=== PATIENT | male | born 1945 | race Caucasian/White ===

== ENCOUNTER 2021-04-21 16:45 | Inpatient (IN) ==
[2021-04-21] MEDS ORDERED: diphenhydrAMINE CAP 25 MG CAPSULE PO PRN (20:21)
[2021-04-21] MEDS ORDERED: GLUCAGON 1 MG VIAL IM PRN (20:21)
[2021-04-21] MEDS ORDERED: NICOTINE 21 MG/24 HR PATCH TRANSDERM PRN (20:21)
[2021-04-21] MEDS ORDERED: MORPHINE 4 MG/1 ML VIAL IV PRN (20:21)
[2021-04-21] MEDS ORDERED: DEXTROSE 50% 25 GM/50 ML VIAL IV PRN (20:21)
[2021-04-21] MEDS ORDERED: hydrALAZINE 20 MG/1 ML VIAL IV PRN (20:21)
[2021-04-21] MEDS ORDERED: ONDANSETRON 4 MG/2 ML VIAL IV PRN (20:21)
[2021-04-21] MEDS ORDERED: SODIUM CHLORIDE 0.9% 1,000 ML IV SCH ×2 (20:30→22:00)
[2021-04-21 21:23] LABS: Basophils % 0.2 % (0.0-0.8); Eosinophils % 0.1 % (0.00-10.9); Hematocrit 47.7 VOL% (42.0-52.0); Hemoglobin 15.6 GM/DL (14.0-18.0); Immature Granulocytes % 0.6 %; Lymphocytes # 1.2 10*3/uL (1.4-4.0); Lymphocytes % 7.5 % (21.2-54.2); Mean Corpuscular HGB Conc 32.7 GM/DL (32-36); Mean Corpuscular Volume 96.2 FL (87-102); Mean Platelet Volume 9.7 FL (9.6-12.0); NRBC # 0.02 10*3/uL; Neutrophils % 87.6 % (38.7-73.9); Platelet Count 136 T/CUMM (130-400); Red Blood Count 4.96 MC/CUMM (3.8-5.5); Red Cell Distribution Width 13.3 % (9.3-17.3); White Blood Count 15.5 T/CUMM (4-12)
[2021-04-21 21:41] LABS: Albumin 2.9 G/DL (3.4-5.0); Bilirubin,Total 0.8 MG/DL (0.2-1.0); Calcium 8.8 MG/DL (8.5-10.1); Potassium 4.6 MMOL/L (3.5-5.1); Total Protein 7.2 G/DL (6.4-8.2)
[2021-04-21 21:45] LABS: Band Neutrophils 19 % (0-10); Lymphocytes 8 % (20-55); Metamyelocytes 2 %; Segmented Neutrophils 69 % (50-85); Total Cells Counted 100
[2021-04-21 21:46] LABS: Platelet Estimate Adequate
[2021-04-21 21:50] LABS: Dohle Bodies Few; Toxic Granulation 1+
[2021-04-22] MEDS ORDERED: cefTRIAXone 1,000 MG in SODIUM CHLORIDE 0.9% 100 ML IV SCH (01:00)
[2021-04-22 02:14] LABS: RBC,Urine 46598 /HPF (0-4)
[2021-04-22 02:22] LABS: Urine Appearance Turbid (Clear); Urine Color Dark Red (Yellow)
[2021-04-22 02:23] LABS: Bilirubin,Urine Negative (Negative); Glucose,Urine (UA) Negative (Negative); Ketones,Urine Negative (Negative); Nitrite,Urine Negative (Negative); Protein,Urine >=500 MG/DL
[2021-04-22 02:24] LABS: Blood, Urine 1+ mg/dL (Negative); Urine Urobilinogen < 2.0 EU/DL (0.2-1.0)
[2021-04-22] MEDS: METOPROLOL TARTRATE 25 MG TABLET PO SCH ×2 (09:38→21:59)
[2021-04-22] MEDS: DUTASTERIDE 0.5 MG CAPSULE PO SCH (21:58)
[2021-04-22] MEDS: MEROPENEM 500 MG in SODIUM CHLORIDE 0.9% 100 ML IV SCH (21:59)
[2021-04-22] MEDS: SIMVASTATIN 10 MG TABLET PO SCH (21:59)
[2021-04-22] MEDS: CHOLESTYRAMINE 4 GM PACK PO SCH (21:59)
[2021-04-23 07:17] LABS: Basophils % 0.3 % (0.0-0.8); Eosinophils # 0.1 10*3/uL (0.0-0.87); Eosinophils % 0.7 % (0.00-10.9); Hematocrit 39.9 VOL% (42.0-52.0); Hemoglobin 13.8 GM/DL (14.0-18.0); Immature Granulocytes % 0.5 %; Immature Granulocytes Absolute 0.06 #; Lymphocytes # 1.2 10*3/uL (1.4-4.0); Lymphocytes % 10.1 % (21.2-54.2); Mean Corpuscular HGB Conc 34.6 GM/DL (32-36); Mean Corpuscular Volume 92.6 FL (87-102); Mean Platelet Volume 10.2 FL (9.6-12.0); Neutrophils % 83.4 % (38.7-73.9); Platelet Count 161 T/CUMM (130-400); Red Blood Count 4.31 MC/CUMM (3.8-5.5); Red Cell Distribution Width 13.1 % (9.3-17.3); White Blood Count 12.3 T/CUMM (4-12)
[2021-04-23 07:33] LABS: Calcium 8.7 MG/DL (8.5-10.1); Osmolality,Calculated 285.8 MOS/KG (273-304)
[2021-04-23] MEDS: MEROPENEM 500 MG in SODIUM CHLORIDE 0.9% 100 ML IV SCH ×2 (08:28→20:23)
[2021-04-23] MEDS: METOPROLOL TARTRATE 25 MG TABLET PO SCH ×2 (08:28→20:23)
[2021-04-23] MEDS: CHOLESTYRAMINE 4 GM PACK PO SCH (09:18)
[2021-04-23] MEDS ORDERED: ZIPRASIDONE 20 MG/1 ML VIAL IM ONE (17:41)
[2021-04-23] MEDS: SIMVASTATIN 10 MG TABLET PO SCH (20:22)
[2021-04-23] MEDS: DUTASTERIDE 0.5 MG CAPSULE PO SCH (20:22)
[2021-04-23] MEDS ORDERED: QUEtiapine 25 MG TABLET PO SCH (21:00)
[2021-04-23] MEDS: HALOPERIDOL 5 MG/ML AMP IM PRN (22:57)
[2021-04-24 05:37] LABS: Basophils % 0.2 % (0.0-0.8); Eosinophils # 0.1 10*3/uL (0.0-0.87); Hematocrit 41.5 VOL% (42.0-52.0); Hemoglobin 13.9 GM/DL (14.0-18.0); Immature Granulocytes % 0.6 %; Immature Granulocytes Absolute 0.07 #; Lymphocytes # 1.3 10*3/uL (1.4-4.0); Lymphocytes % 11.5 % (21.2-54.2); Mean Corpuscular HGB Conc 33.5 GM/DL (32-36); Mean Corpuscular Volume 92.6 FL (87-102); Mean Platelet Volume 9.6 FL (9.6-12.0); Neutrophils % 77.7 % (38.7-73.9); Platelet Count 181 T/CUMM (130-400); Red Blood Count 4.48 MC/CUMM (3.8-5.5); Red Cell Distribution Width 12.8 % (9.3-17.3); White Blood Count 11.1 T/CUMM (4-12)
[2021-04-24 05:57] LABS: Eosinophils 2 % (0-10); Lymphocytes 6 % (20-55); Platelet Estimate Adequate; Segmented Neutrophils 81 % (50-85); Total Cells Counted 100
[2021-04-24 05:58] LABS: Calcium 8.8 MG/DL (8.5-10.1); Osmolality,Calculated 286.4 MOS/KG (273-304)
[2021-04-24 06:03] LABS: Folate 15.84 NG/ML (5.38-24.0)
[2021-04-24] MEDS: MEROPENEM 500 MG in SODIUM CHLORIDE 0.9% 100 ML IV SCH ×2 (08:35→21:13)
[2021-04-24] MEDS: METOPROLOL TARTRATE 25 MG TABLET PO SCH ×2 (08:35→21:13)
[2021-04-24] MEDS: DIGOXIN 0.25 MG TABLET PO SCH (08:35)
[2021-04-24 08:43] LABS: Bilirubin,Urine Negative (Negative); Blood, Urine Large mg/dL (Negative); Glucose,Urine (UA) Negative (Negative); Ketones,Urine Negative (Negative); Nitrite,Urine Negative (Negative); Protein,Urine 30 MG/DL; RBC,Urine 9 /HPF (0-4); Urine Appearance Slightly Hazy (Clear); Urine Color Yellow (Yellow); Urine Specific Gravity 1.008 (1.001-1.035); Urine Urobilinogen < 2.0 EU/DL (0.2-1.0)
[2021-04-24] MEDS: HALOPERIDOL 5 MG/ML AMP IM PRN (10:04)
[2021-04-24] MEDS ORDERED: HALOPERIDOL 5 MG/ML AMP IM ONE (14:07)
[2021-04-24] MEDS ORDERED: cefTRIAXone 1,000 MG in SODIUM CHLORIDE 0.9% 100 ML IV SCH (16:30)
[2021-04-24] MEDS: SIMVASTATIN 10 MG TABLET PO SCH (21:13)
[2021-04-24] MEDS: DUTASTERIDE 0.5 MG CAPSULE PO SCH (21:13)
[2021-04-24] MEDS: QUEtiapine 25 MG TABLET PO SCH (21:13)
[2021-04-25] MEDS: MEROPENEM 500 MG in SODIUM CHLORIDE 0.9% 100 ML IV SCH ×4 (03:01→20:43)
[2021-04-25 05:34] LABS: Basophils % 0.4 % (0.0-0.8); Eosinophils # 0.3 10*3/uL (0.0-0.87); Eosinophils % 3.2 % (0.00-10.9); Hemoglobin 13.9 GM/DL (14.0-18.0); Immature Granulocytes % 0.7 %; Immature Granulocytes Absolute 0.06 #; Lymphocytes # 1.4 10*3/uL (1.4-4.0); Lymphocytes % 16.8 % (21.2-54.2); Mean Corpuscular HGB Conc 34.8 GM/DL (32-36); Mean Corpuscular Volume 90.9 FL (87-102); Mean Platelet Volume 9.6 FL (9.6-12.0); Monocytes % 12.6 % (1.7-12.7); Neutrophils % 66.3 % (38.7-73.9); Platelet Count 185 T/CUMM (130-400); Red Cell Distribution Width 12.9 % (9.3-17.3); White Blood Count 8.4 T/CUMM (4-12)
[2021-04-25 06:01] LABS: Calcium 8.3 MG/DL (8.5-10.1); Osmolality,Calculated 284.3 MOS/KG (273-304); Potassium 3.7 MMOL/L (3.5-5.1)
[2021-04-25] MEDS ORDERED: cefTRIAXone 1,000 MG in SODIUM CHLORIDE 0.9% 100 ML IV ONE (07:48)
[2021-04-25] MEDS: DIGOXIN 0.25 MG TABLET PO SCH (10:07)
[2021-04-25] MEDS: METOPROLOL TARTRATE 25 MG TABLET PO SCH (10:07)
[2021-04-25] MEDS: QUEtiapine 25 MG TABLET PO SCH (20:42)
[2021-04-25] MEDS: METOPROLOL TARTRATE 50 MG TABLET PO SCH (20:43)
[2021-04-25] MEDS: DUTASTERIDE 0.5 MG CAPSULE PO SCH (20:43)
[2021-04-25] MEDS: SIMVASTATIN 10 MG TABLET PO SCH (20:43)
[2021-04-26] MEDS: MEROPENEM 500 MG in SODIUM CHLORIDE 0.9% 100 ML IV SCH ×4 (03:16→20:23)
[2021-04-26 04:22] LABS: Basophils % 0.3 % (0.0-0.8); Eosinophils # 0.3 10*3/uL (0.0-0.87); Eosinophils % 2.6 % (0.00-10.9); Hemoglobin 14.7 GM/DL (14.0-18.0); Immature Granulocytes % 0.8 %; Immature Granulocytes Absolute 0.08 #; Lymphocytes # 1.6 10*3/uL (1.4-4.0); Lymphocytes % 16.5 % (21.2-54.2); Mean Corpuscular HGB Conc 34.2 GM/DL (32-36); Mean Corpuscular Volume 92.1 FL (87-102); Mean Platelet Volume 9.7 FL (9.6-12.0); Monocytes % 13.9 % (1.7-12.7); Neutrophils % 65.9 % (38.7-73.9); Platelet Count 210 T/CUMM (130-400); Red Blood Count 4.67 MC/CUMM (3.8-5.5); Red Cell Distribution Width 12.6 % (9.3-17.3); White Blood Count 9.6 T/CUMM (4-12)
[2021-04-26 04:29] LABS: Calcium 8.6 MG/DL (8.5-10.1); Osmolality,Calculated 279.5 MOS/KG (273-304); Potassium 4.2 MMOL/L (3.5-5.1)
[2021-04-26] MEDS: METOPROLOL TARTRATE 50 MG TABLET PO SCH ×2 (10:01→20:22)
[2021-04-26] MEDS: DIGOXIN 0.25 MG TABLET PO SCH (10:02)
[2021-04-26] MEDS: QUEtiapine 100 MG TABLET PO SCH (20:22)
[2021-04-26] MEDS: SIMVASTATIN 10 MG TABLET PO SCH (20:22)
[2021-04-26] MEDS: DUTASTERIDE 0.5 MG CAPSULE PO SCH (20:22)
[2021-04-26] MEDS: HALOPERIDOL 5 MG/ML AMP IM PRN ×2 (20:23)
[2021-04-27] MEDS: MEROPENEM 500 MG in SODIUM CHLORIDE 0.9% 100 ML IV SCH ×4 (04:35→20:11)
[2021-04-27 05:14] LABS: Basophils % 0.5 % (0.0-0.8); Eosinophils # 0.2 10*3/uL (0.0-0.87); Eosinophils % 2.7 % (0.00-10.9); Hematocrit 46.7 VOL% (42.0-52.0); Hemoglobin 15.4 GM/DL (14.0-18.0); Immature Granulocytes % 0.9 %; Immature Granulocytes Absolute 0.08 #; Lymphocytes # 1.9 10*3/uL (1.4-4.0); Lymphocytes % 22.2 % (21.2-54.2); Mean Corpuscular Volume 94.9 FL (87-102); Mean Platelet Volume 9.6 FL (9.6-12.0); Neutrophils % 60.7 % (38.7-73.9); Platelet Count 213 T/CUMM (130-400); Red Blood Count 4.92 MC/CUMM (3.8-5.5); Red Cell Distribution Width 12.4 % (9.3-17.3); White Blood Count 8.5 T/CUMM (4-12)
[2021-04-27] MEDS ORDERED: cefTRIAXone 1,000 MG in SODIUM CHLORIDE 0.9% 100 ML IV ONE (06:00)
[2021-04-27 06:08] LABS: Calcium 8.5 MG/DL (8.5-10.1); Osmolality,Calculated 269.1 MOS/KG (273-304); Potassium 5.2 MMOL/L (3.5-5.1)
[2021-04-27 06:34] LABS: Platelet Estimate Normal
[2021-04-27] MEDS ORDERED: SODIUM POLYSTYRENE SULFATE 15 GM/60 ML BOTTLE PO STA (07:03)
[2021-04-27] MEDS: DIGOXIN 0.25 MG TABLET PO SCH (09:01)
[2021-04-27] MEDS: METOPROLOL TARTRATE 50 MG TABLET PO SCH ×2 (09:01→20:11)
[2021-04-27] MEDS ORDERED: fentaNYL 100 MCG/2 ML VIAL ONE (09:19)
[2021-04-27] MEDS ORDERED: SODIUM CHLORIDE 0.9% 100 ML IV ONE ×2 (09:57→10:31)
[2021-04-27] MEDS ORDERED: PHENYLEPHRINE 10 MG/1 ML VIAL IV ONE (09:57)
[2021-04-27] MEDS ORDERED: LACTATED RINGERS 1,000 ML IV SCH (10:00)
[2021-04-27] MEDS ORDERED: propofoL 200 MG/20 ML VIAL IV ONE (10:31)
[2021-04-27] MEDS ORDERED: ETOMIDATE 40 MG/20 ML VIAL IV ONE (10:31)
[2021-04-27] MEDS ORDERED: AMIODARONE 150 MG/3 ML VIAL ONE (10:32)
[2021-04-27] MEDS: QUEtiapine 100 MG TABLET PO SCH (20:10)
[2021-04-27] MEDS: SIMVASTATIN 10 MG TABLET PO SCH (20:11)
[2021-04-27] MEDS: ASCORBIC ACID 500 MG TABLET PO SCH (20:11)
[2021-04-27] MEDS: DUTASTERIDE 0.5 MG CAPSULE PO SCH (20:11)
[2021-04-28] MEDS: MEROPENEM 500 MG in SODIUM CHLORIDE 0.9% 100 ML IV SCH ×4 (03:10→20:39)
[2021-04-28 06:16] LABS: Basophils # 0.1 10*3/uL (0.0-0.2); Basophils % 0.6 % (0.0-0.8); Eosinophils # 0.3 10*3/uL (0.0-0.87); Eosinophils % 3.1 % (0.00-10.9); Hematocrit 42.5 VOL% (42.0-52.0); Hemoglobin 14.3 GM/DL (14.0-18.0); Immature Granulocytes % 0.9 %; Immature Granulocytes Absolute 0.07 #; Lymphocytes # 1.8 10*3/uL (1.4-4.0); Lymphocytes % 22.5 % (21.2-54.2); Mean Corpuscular HGB Conc 33.6 GM/DL (32-36); Mean Corpuscular Volume 92.8 FL (87-102); Mean Platelet Volume 9.8 FL (9.6-12.0); Monocytes % 10.6 % (1.7-12.7); Neutrophils % 62.3 % (38.7-73.9); Platelet Count 212 T/CUMM (130-400); Red Blood Count 4.58 MC/CUMM (3.8-5.5); Red Cell Distribution Width 12.4 % (9.3-17.3); White Blood Count 8.1 T/CUMM (4-12)
[2021-04-28 06:31] LABS: Calcium 8.1 MG/DL (8.5-10.1); Osmolality,Calculated 276.5 MOS/KG (273-304); Potassium 3.5 MMOL/L (3.5-5.1)
[2021-04-28] MEDS: DIGOXIN 0.25 MG TABLET PO SCH (09:00)
[2021-04-28] MEDS: ASPIRIN EC 81 MG TABLET PO SCH (09:00)
[2021-04-28] MEDS: ASCORBIC ACID 500 MG TABLET PO SCH ×2 (09:01→20:39)
[2021-04-28] MEDS: METOPROLOL TARTRATE 50 MG TABLET PO SCH ×2 (09:01→20:39)
[2021-04-28] MEDS: DILTIAZEM 30 MG TABLET PO SCH ×3 (10:24→22:59)
[2021-04-28] MEDS: ALBUTEROL/IPRATROPIUM 3 ML NEB RESP TX SCH (20:14)
[2021-04-28] MEDS: DUTASTERIDE 0.5 MG CAPSULE PO SCH (20:39)
[2021-04-28] MEDS: SIMVASTATIN 10 MG TABLET PO SCH (20:39)
[2021-04-28] MEDS ORDERED: QUEtiapine 25 MG TABLET PO SCH (21:00)
[2021-04-29] MEDS ORDERED: DILTIAZEM 50 MG/10 ML VIAL IV ONE (00:15)
[2021-04-29] MEDS: ALBUTEROL/IPRATROPIUM 3 ML NEB RESP TX SCH ×4 (00:58→18:57)
[2021-04-29] MEDS: MEROPENEM 500 MG in SODIUM CHLORIDE 0.9% 100 ML IV SCH ×4 (03:19→20:25)
[2021-04-29] MEDS: DILTIAZEM 30 MG TABLET PO SCH (04:51)
[2021-04-29] MEDS: ASCORBIC ACID 500 MG TABLET PO SCH ×2 (09:00→21:58)
[2021-04-29] MEDS: ASPIRIN EC 81 MG TABLET PO SCH (09:00)
[2021-04-29] MEDS: DIGOXIN 0.25 MG TABLET PO SCH (09:00)
[2021-04-29] MEDS: METOPROLOL TARTRATE 50 MG TABLET PO SCH ×2 (09:00→21:58)
[2021-04-29] MEDS: DILTIAZEM INJ 100 MG in SODIUM CHLORIDE 0.9% 100 ML IV SCH (10:30)
[2021-04-29] MEDS ORDERED: SODIUM CHLORIDE 0.9% 1,000 ML IV ONE (10:59)
[2021-04-29] MEDS ORDERED: POTASSIUM CHLORIDE RIDER 20 MEQ/100 ML PREMIX IV PRN (11:05)
[2021-04-29] MEDS ORDERED: MAGNESIUM SULF RIDER 2 GM/50 ML PREMIX IV PRN (11:06)
[2021-04-29] MEDS: POTASSIUM CHLORIDE RIDER 10 MEQ/100 ML PREMIX IV PRN ×3 (11:41→16:39)
[2021-04-29] MEDS: SODIUM CHLORIDE 0.9% 1,000 ML IV SCH (13:21)
[2021-04-29] MEDS: PANTOPRAZOLE 40 MG TABLET PO SCH (15:16)
[2021-04-29] MEDS: DUTASTERIDE 0.5 MG CAPSULE PO SCH (21:57)
[2021-04-29] MEDS: SIMVASTATIN 10 MG TABLET PO SCH (21:58)
[2021-04-29] MEDS: QUEtiapine 25 MG TABLET PO SCH (21:58)
[2021-04-30] MEDS: ALBUTEROL/IPRATROPIUM 3 ML NEB RESP TX SCH ×4 (00:07→19:44)
[2021-04-30] MEDS: MEROPENEM 500 MG in SODIUM CHLORIDE 0.9% 100 ML IV SCH ×4 (02:08→20:50)
[2021-04-30] MEDS: SODIUM CHLORIDE 0.9% 1,000 ML IV SCH ×3 (02:09→20:50)
[2021-04-30] MEDS: DILTIAZEM INJ 100 MG in SODIUM CHLORIDE 0.9% 100 ML IV SCH ×2 (05:08→15:31)
[2021-04-30] MEDS: DIGOXIN 0.25 MG TABLET PO SCH (10:26)
[2021-04-30] MEDS: ASPIRIN EC 81 MG TABLET PO SCH (10:27)
[2021-04-30] MEDS: ASCORBIC ACID 500 MG TABLET PO SCH ×2 (10:27→20:48)
[2021-04-30] MEDS: METOPROLOL TARTRATE 50 MG TABLET PO SCH ×2 (10:27→20:49)
[2021-04-30] MEDS: PANTOPRAZOLE 40 MG TABLET PO SCH (10:27)
[2021-04-30] MEDS: ASPIRIN 300 MG SUPP RECTAL SCH (10:43)
[2021-04-30] MEDS: NYSTATIN 500,000 UNIT/5 ML UDCUP SWISH/SWAL SCH ×2 (15:37→20:49)
[2021-04-30] MEDS: QUEtiapine 25 MG TABLET PO SCH (20:48)
[2021-04-30] MEDS: DUTASTERIDE 0.5 MG CAPSULE PO SCH (20:48)
[2021-04-30] MEDS: SIMVASTATIN 10 MG TABLET PO SCH (20:49)
[2021-04-30] MEDS: ACETAMINOPHEN 325 MG TABLET PO PRN (20:49)
[2021-05-01] MEDS: HALOPERIDOL 5 MG/ML AMP IM PRN (00:04)
[2021-05-01] MEDS: ALBUTEROL/IPRATROPIUM 3 ML NEB RESP TX SCH ×4 (01:25→19:35)
[2021-05-01] MEDS: MEROPENEM 500 MG in SODIUM CHLORIDE 0.9% 100 ML IV SCH ×3 (04:13→16:59)
[2021-05-01 05:00] LABS: Basophils % 0.1 % (0.0-0.8); Eosinophils # 0.2 10*3/uL (0.0-0.87); Eosinophils % 1.3 % (0.00-10.9); Hematocrit 34.4 VOL% (42.0-52.0); Hemoglobin 11.5 GM/DL (14.0-18.0); Immature Granulocytes % 0.7 %; Immature Granulocytes Absolute 0.08 #; Lymphocytes # 1.4 10*3/uL (1.4-4.0); Lymphocytes % 12.3 % (21.2-54.2); Mean Corpuscular HGB Conc 33.4 GM/DL (32-36); Mean Corpuscular Volume 93.2 FL (87-102); Mean Platelet Volume 10.1 FL (9.6-12.0); Monocytes % 6.2 % (1.7-12.7); Neutrophils % 79.4 % (38.7-73.9); Platelet Count 175 T/CUMM (130-400); Red Blood Count 3.69 MC/CUMM (3.8-5.5); Red Cell Distribution Width 12.7 % (9.3-17.3); White Blood Count 11.3 T/CUMM (4-12)
[2021-05-01] MEDS: DILTIAZEM INJ 100 MG in SODIUM CHLORIDE 0.9% 100 ML IV SCH ×2 (05:11→16:21)
[2021-05-01 05:36] LABS: Calcium 7.5 MG/DL (8.5-10.1); Osmolality,Calculated 278.4 MOS/KG (273-304); Potassium 3.3 MMOL/L (3.5-5.1)
[2021-05-01] MEDS: SODIUM CHLORIDE 0.9% 1,000 ML IV SCH ×3 (06:33→17:05)
[2021-05-01] MEDS: ASPIRIN EC 81 MG TABLET PO SCH (09:24)
[2021-05-01] MEDS: DIGOXIN 0.25 MG TABLET PO SCH (09:25)
[2021-05-01] MEDS: NYSTATIN 500,000 UNIT/5 ML UDCUP SWISH/SWAL SCH ×3 (09:25→22:12)
[2021-05-01] MEDS: PANTOPRAZOLE 40 MG TABLET PO SCH (09:26)
[2021-05-01] MEDS: METOPROLOL TARTRATE 50 MG TABLET PO SCH ×2 (09:26→22:10)
[2021-05-01] MEDS: ASCORBIC ACID 500 MG TABLET PO SCH ×2 (09:26→22:10)
[2021-05-01] MEDS: ACETAMINOPHEN 325 MG TABLET PO PRN (09:27)
[2021-05-01] MEDS: ASPIRIN 300 MG SUPP RECTAL SCH (10:39)
[2021-05-01] MEDS: POTASSIUM CHLORIDE RIDER 10 MEQ/100 ML PREMIX IV PRN ×4 (10:47→18:00)
[2021-05-01] MEDS ORDERED: MAGNESIUM SULF RIDER 2 GM/50 ML PREMIX IV ONE (14:36)
[2021-05-01] MEDS ORDERED: POTASSIUM CHLORIDE 20 MEQ/15 ML UDCUP PO ONE (14:36)
[2021-05-01] MEDS: QUEtiapine 25 MG TABLET PO SCH (22:09)
[2021-05-01] MEDS: DUTASTERIDE 0.5 MG CAPSULE PO SCH (22:10)
[2021-05-01] MEDS: DILTIAZEM CD 120 MG CAPSULE PO SCH (22:11)
[2021-05-01] MEDS: SIMVASTATIN 10 MG TABLET PO SCH (22:12)
[2021-05-02] MEDS: MEROPENEM 500 MG in SODIUM CHLORIDE 0.9% 100 ML IV SCH ×2 (00:31→05:30)
[2021-05-02] MEDS: ALBUTEROL/IPRATROPIUM 3 ML NEB RESP TX SCH ×4 (01:15→19:40)
[2021-05-02 05:03] LABS: Basophils % 0.4 % (0.0-0.8); Eosinophils # 0.1 10*3/uL (0.0-0.87); Eosinophils % 1.5 % (0.00-10.9); Immature Granulocytes % 0.5 %; Immature Granulocytes Absolute 0.04 #; Lymphocytes # 1.4 10*3/uL (1.4-4.0); Lymphocytes % 17.4 % (21.2-54.2); Mean Corpuscular HGB Conc 33.3 GM/DL (32-36); Mean Corpuscular Volume 93.2 FL (87-102); Mean Platelet Volume 10.3 FL (9.6-12.0); Neutrophils % 71.2 % (38.7-73.9); Platelet Count 195 T/CUMM (130-400); Red Blood Count 3.54 MC/CUMM (3.8-5.5); Red Cell Distribution Width 12.6 % (9.3-17.3); White Blood Count 7.8 T/CUMM (4-12)
[2021-05-02 05:25] LABS: Calcium 7.5 MG/DL (8.5-10.1); Osmolality,Calculated 273.7 MOS/KG (273-304); Potassium 3.4 MMOL/L (3.5-5.1)
[2021-05-02] MEDS: SODIUM CHLORIDE 0.9% 1,000 ML IV SCH (05:30)
[2021-05-02 05:34] LABS: Eosinophils 4 % (0-10); Hypochromasia 1+; Lymphocytes 9 % (20-55); Platelet Estimate Adequate; Segmented Neutrophils 79 % (50-85); Total Cells Counted 100
[2021-05-02] MEDS ORDERED: POTASSIUM CHLORIDE 20 MEQ TABLET PO PRN (08:12)
[2021-05-02] MEDS ORDERED: POTASSIUM CHLORIDE 20 MEQ TABLET PO ONE (08:12)
[2021-05-02] MEDS: METOPROLOL TARTRATE 50 MG TABLET PO SCH ×2 (08:21→20:33)
[2021-05-02] MEDS: DIGOXIN 0.25 MG TABLET PO SCH (08:21)
[2021-05-02] MEDS: ASPIRIN 300 MG SUPP RECTAL SCH (08:21)
[2021-05-02] MEDS: DILTIAZEM CD 120 MG CAPSULE PO SCH (08:22)
[2021-05-02] MEDS: NYSTATIN 500,000 UNIT/5 ML UDCUP SWISH/SWAL SCH ×4 (08:22→21:26)
[2021-05-02] MEDS: PANTOPRAZOLE 40 MG TABLET PO SCH (08:22)
[2021-05-02] MEDS: ASCORBIC ACID 500 MG TABLET PO SCH ×2 (08:22→20:32)
[2021-05-02] MEDS: ASPIRIN EC 81 MG TABLET PO SCH (08:22)
[2021-05-02] MEDS: HEPARIN DRIP 25,000 UNITS/500 ML PREMIX IV SCH (10:42)
[2021-05-02] MEDS: DILTIAZEM INJ 100 MG in SODIUM CHLORIDE 0.9% 100 ML IV SCH ×2 (12:21→19:17)
[2021-05-02] MEDS: FUROSEMIDE 20 MG/2 ML VIAL IV SCH (17:20)
[2021-05-02] MEDS: QUEtiapine 25 MG TABLET PO SCH (20:31)
[2021-05-02] MEDS: SIMVASTATIN 10 MG TABLET PO SCH (20:32)
[2021-05-02] MEDS: DILTIAZEM CD 240 MG CAPSULE PO SCH (20:32)
[2021-05-02] MEDS: DUTASTERIDE 0.5 MG CAPSULE PO SCH (20:33)
[2021-05-03] MEDS: ALBUTEROL/IPRATROPIUM 3 ML NEB RESP TX SCH ×4 (00:48→19:18)
[2021-05-03] MEDS: HEPARIN DRIP 25,000 UNITS/500 ML PREMIX IV SCH (01:48)
[2021-05-03 08:10] LABS: Basophils % 0.3 % (0.0-0.8); Eosinophils # 0.1 10*3/uL (0.0-0.87); Eosinophils % 1.8 % (0.00-10.9); Hematocrit 35.1 VOL% (42.0-52.0); Hemoglobin 11.8 GM/DL (14.0-18.0); Immature Granulocytes % 0.6 %; Immature Granulocytes Absolute 0.05 #; Lymphocytes # 1.7 10*3/uL (1.4-4.0); Lymphocytes % 21.8 % (21.2-54.2); Mean Corpuscular HGB Conc 33.6 GM/DL (32-36); Mean Corpuscular Volume 92.6 FL (87-102); Monocytes % 8.9 % (1.7-12.7); Neutrophils % 66.6 % (38.7-73.9); Platelet Count 234 T/CUMM (130-400); Red Blood Count 3.79 MC/CUMM (3.8-5.5); Red Cell Distribution Width 12.8 % (9.3-17.3); White Blood Count 7.8 T/CUMM (4-12)
[2021-05-03] MEDS: DILTIAZEM CD 240 MG CAPSULE PO SCH ×2 (08:14→20:36)
[2021-05-03] MEDS: POTASSIUM CHLORIDE 10 MEQ TABLET PO SCH (08:15)
[2021-05-03] MEDS: ASPIRIN EC 81 MG TABLET PO SCH (08:15)
[2021-05-03] MEDS: PANTOPRAZOLE 40 MG TABLET PO SCH (08:15)
[2021-05-03] MEDS: DIGOXIN 0.25 MG TABLET PO SCH (08:15)
[2021-05-03] MEDS: METOPROLOL TARTRATE 50 MG TABLET PO SCH ×2 (08:15→20:36)
[2021-05-03] MEDS: ASCORBIC ACID 500 MG TABLET PO SCH ×2 (08:16→20:35)
[2021-05-03] MEDS: NYSTATIN 500,000 UNIT/5 ML UDCUP SWISH/SWAL SCH ×4 (08:16→22:28)
[2021-05-03] MEDS: FUROSEMIDE 20 MG/2 ML VIAL IV SCH ×2 (08:20→15:05)
[2021-05-03 08:21] LABS: Calcium 7.7 MG/DL (8.5-10.1); Osmolality,Calculated 273.7 MOS/KG (273-304); Potassium 3.4 MMOL/L (3.5-5.1)
[2021-05-03] MEDS: ASPIRIN 300 MG SUPP RECTAL SCH (08:21)
[2021-05-03] MEDS ORDERED: METOPROLOL TARTRATE 5 MG/5 ML VIAL IV PRN (10:07)
[2021-05-03] MEDS: SIMVASTATIN 10 MG TABLET PO SCH (20:35)
[2021-05-03] MEDS: QUEtiapine 25 MG TABLET PO SCH (20:35)
[2021-05-03] MEDS: DUTASTERIDE 0.5 MG CAPSULE PO SCH (20:35)
[2021-05-03] MEDS: APIXABAN 5 MG TABLET PO SCH (20:35)
[2021-05-04] MEDS: ALBUTEROL/IPRATROPIUM 3 ML NEB RESP TX SCH ×3 (01:35→12:25)
[2021-05-04 04:28] LABS: Basophils % 0.3 % (0.0-0.8); Eosinophils # 0.1 10*3/uL (0.0-0.87); Eosinophils % 2.3 % (0.00-10.9); Hematocrit 36.4 VOL% (42.0-52.0); Hemoglobin 12.3 GM/DL (14.0-18.0); Immature Granulocytes % 0.5 %; Immature Granulocytes Absolute 0.03 #; Lymphocytes # 1.4 10*3/uL (1.4-4.0); Lymphocytes % 22.9 % (21.2-54.2); Mean Corpuscular HGB Conc 33.8 GM/DL (32-36); Mean Corpuscular Volume 91.7 FL (87-102); Mean Platelet Volume 10.1 FL (9.6-12.0); Monocytes % 11.8 % (1.7-12.7); Neutrophils % 62.2 % (38.7-73.9); Platelet Count 238 T/CUMM (130-400); Red Blood Count 3.97 MC/CUMM (3.8-5.5); Red Cell Distribution Width 12.5 % (9.3-17.3)
[2021-05-04 04:51] LABS: Calcium 7.8 MG/DL (8.5-10.1); Osmolality,Calculated 277.4 MOS/KG (273-304); Potassium 3.3 MMOL/L (3.5-5.1)
[2021-05-04] MEDS: METOPROLOL TARTRATE 50 MG TABLET PO SCH (09:06)
[2021-05-04] MEDS: ASCORBIC ACID 500 MG TABLET PO SCH (09:06)
[2021-05-04] MEDS: APIXABAN 5 MG TABLET PO SCH (09:06)
[2021-05-04] MEDS: DIGOXIN 0.25 MG TABLET PO SCH (09:06)
[2021-05-04] MEDS: PANTOPRAZOLE 40 MG TABLET PO SCH (09:06)
[2021-05-04] MEDS: ASPIRIN EC 81 MG TABLET PO SCH (09:06)
[2021-05-04] MEDS: POTASSIUM CHLORIDE 10 MEQ TABLET PO SCH (09:06)
[2021-05-04] MEDS: DILTIAZEM CD 240 MG CAPSULE PO SCH (09:07)
[2021-05-04] MEDS: NYSTATIN 500,000 UNIT/5 ML UDCUP SWISH/SWAL SCH (09:07)
[2021-05-04] MEDS: FUROSEMIDE 20 MG/2 ML VIAL IV SCH (09:16)
[2021-05-04] MEDS: ASPIRIN 300 MG SUPP RECTAL SCH (09:18)
[2021-05-04 12:02] VITALS: BP 93/57
== END 2021-05-04 16:50 | disposition swing bed (61) | DRG 698 ==
LOC: EDBD → INTOOBSV 19:33 → SUATTDRO 19:33 → N.3E 19:33 → SUATTDRO 04-22 09:44 → N.TELES 04-29 10:17
PROVIDERS: ADMIT Internal Medicine; ATTEND Internal Medicine